=== PATIENT | male | born 1980 | race Caucasian/White ===

== ENCOUNTER 2017-01-05 21:13 | Emergency (ER) | payer BC ==
[2017-01-05] MEDS ORDERED: Albuterol/Ipratropium 3.0-0.5 MG/3 ML Neb Soln NEB ONE (21:20)
--- NOTE | 2017-01-05 21:27 | EDM.PDOC ---
ED HPI GENERAL MEDICAL PROBLEM - General Chief Complaint: Respiratory Problem Stated Complaint: PT HAS DIFFICULTY BREATHING Time Seen by Provider: 01/05/17 21:15 Source of Information: Reports: Patient History Limitations: Reports: No Limitations - History of Present Illness INITIAL COMMENTS - FREE TEXT/NARRATIVE: HISTORY AND PHYSICAL: History of present illness: Patient is a 36-year-old male who presents to the emergency room today with complaints of body aches, dyspnea, cough 1 week. He reports that he is concerned he has the flu. Does have a 20 year history, one pack per day, of smoking. Has not tried any [id number] products for his symptoms. Denies any chest pain, abdominal pain, nausea, vomiting, diarrhea. Has not received the [id number] influenza vaccine. Review of systems: As per history of present illness and below otherwise all systems reviewed and negative. Past medical history: As per history of present illness and as reviewed below otherwise noncontributory. Surgical history: As per history of present illness and as reviewed below otherwise noncontributory. Social history: No reported history of drug or alcohol abuse. Family history: As per history of present illness and as reviewed below otherwise noncontributory. Physical exam: Gen.: Well-developed and well-nourished 36-year-old male. Appears nontoxic and in no acute distress. Alert and oriented. HEENT: Atraumatic, normocephalic, pupils reactive, negative for conjunctival pallor or scleral icterus, mucous membranes moist, throat clear, neck supple, nontender, trachea midline. Lungs: Expiratory wheezing noted to the right posterior base otherwise clear, breath sounds equal bilaterally, chest nontender. Dry nonproductive cough noted. Heart: S1S2 regular rate and rhythm. Abdomen: Soft, nondistended, nontender. Negative for masses or hepatosplenomegaly. Negative for costovertebral tenderness. Pelvis: Stable nontender. Genitourinary: Deferred. Rectal: Deferred. Extremities: Atraumatic, negative for cords or calf pain. Neurovascular unremarkable. Neuro: Awake, alert, oriented. Cranial nerves II through XII unremarkable. Cerebellum unremarkable. Motor and sensory unremarkable throughout. Exam nonfocal. Diagnostics: Influenza swab, chest x-ray Therapeutics: DuoNeb Impression: Atypical pneumonia Plan: 1. Please take your medication as prescribed. Antibiotic has been prescribed for atypical pneumonia. A Medrol Dosepak has been prescribed to help with inflammation/swelling of the airway. And DuoNeb solutions have been prescribed as needed for difficulty breathing/cough. 2. Please stop smoking. 3. Follow-up with your primary care provider in the next 1-2 days. Return to the ED as needed and as discussed. Definitive disposition and diagnosis as appropriate pending reevaluation and review of above. Duration: Week(s): (1) - Related Data Allergies Allergy/AdvReac Type Severity Reaction Status Date / Time No Known Allergies Allergy Verified 01/05/17 21:17 Home Meds: Home Meds . [Unable to Verify Home Med List] 01/05/17 [History] Past Medical History HEENT History: Reports: None Cardiovascular History: Reports: Hypertension Respiratory History: Reports: None Gastrointestinal History: Reports: None Genitourinary History: Reports: None Musculoskeletal History: Reports: None Neurological History: Reports: None Psychiatric History: Reports: None Endocrine/Metabolic History: Reports: None Hematologic History: Reports: None Immunologic History: Reports: None Oncologic (Cancer) History: Reports: None Dermatologic History: Reports: None - Past Surgical History Head Surgeries/Procedures: Reports: None HEENT Surgical History: Reports: None Cardiovascular Surgical History: Reports: None Respiratory Surgical History: Reports: None GI Surgical History: Reports: None Male Surgical History: Reports: None Endocrine Surgical History: Reports: None Neurological Surgical History: Reports: None Musculoskeletal Surgical History: Reports: None Oncologic Surgical History: Reports: None Dermatological Surgical History: Reports: None Social & Family History - Family History Family Medical History: Noncontributory - Tobacco Use Smoking Status *Q: Current Every Day Smoker Years of Tobacco use: 20 Packs/Tins Daily: 1 - Caffeine Use Caffeine Use: Reports: Coffee - Recreational Drug Use Recreational Drug Use: No ED ROS GENERAL - Review of Systems Review Of Systems: ROS reveals no pertinent complaints other than HPI. ED EXAM, GENERAL - Physical Exam Exam: See Below (See dictation) Course - Vital Signs Last Recorded V/S: Last Vital Signs Temp 36.2 C 01/05/17 21:17 Pulse 81 01/05/17 21:17 Resp 18 01/05/17 21:17 BP 163/105 H 01/05/17 21:17 Pulse Ox 98 01/05/17 21:17 - Orders/Labs/Meds Orders: Active Orders 24 hr Category Date Time Status RT Aerosol Therapy [RC] ASDIRECTED Care 01/05/17 21:23 Active Chest 2V [CR] Stat Exams 01/05/17 21:20 Ordered Meds: Medications Discontinued Medications Generic Name Dose Route Start Last Admin Trade Name Jos PRN Reason Stop Dose Admin Albuterol/Ipratropium 3 ml 01/05/17 21:20 01/05/17 21:31 Duoneb 3.0-0.5 Mg/3 Ml NEB 01/05/17 21:21 3 ml ONETIME ONE Administration Departure - Departure Time of Disposition: 21:52 Disposition: Home, Self-Care 01 Clinical Impression: Atypical pneumonia - Discharge Information Referrals: PCP,None [Primary Care Provider] - Forms: ED Department Discharge Additional Instructions: My general discharge The following information is given to patients seen in the emergency department who are being discharged to home. This information is to outline your options for follow-up care. We provide all patients seen in our emergency department with a follow-up referral. The need for follow-up, as well as the timing and circumstances, are variable depending upon the specifics of your emergency department visit. If you don't have a primary care physician on staff, we will provide you with a referral. We always advise you to contact your personal physician following an emergency department visit to inform them of the circumstance of the visit and for follow-up with them and/or the need for any referrals to a consulting specialist. The emergency department will also refer you to a specialist when appropriate. This referral assures that you have the opportunity for follow-up care with a specialist. All of these measure are taken in an effort to provide you with optimal care, which includes your follow-up. Under all circumstances we always encourage you to contact your private physician who remains a resource for coordinating your care. When calling for follow-up care, please make the office aware that this follow-up is from your recent emergency room visit. If for any reason you are refused follow-up, please contact the [facility] at and asked to speak to the emergency department charge nurse. [facility] [address] [place] [id number] 1. Please take your medication as prescribed. Antibiotic has been prescribed for atypical pneumonia. A Medrol Dosepak has been prescribed to help with inflammation/swelling of the airway. And DuoNeb solutions have been prescribed as needed for difficulty breathing/cough. 2. Please stop smoking. 3. Follow-up with your primary care provider in the next 1-2 days. Return to the ED as needed and as discussed. - My Orders Last 24 Hours: My Active Orders 01/05/17 21:20 Chest 2V [CR] Stat 01/05/17 21:23 RT Aerosol Therapy [RC] ASDIRECTED - Assessment/Plan Last 24 Hours: My Active Orders 01/05/17 21:20 Chest 2V [CR] Stat 01/05/17 21:23 RT Aerosol Therapy [RC] ASDIRECTED
--- NOTE | 2017-01-06 16:13 | CR ---
EXAM DATE: 01/05/17 PATIENT'S AGE: 36 Patient: RACHEL THIBODEAUX Facility: [place], [place] Site . Site : [id number] Study: XRay Chest [id number] 9:57:47 PM Ordering Physician: Doctor Calderon Final Report: INDICATION: Shortness of breath. Cough. Technique: PA and lateral chest x-ray. Findings: Heart size normal. Lungs clear without infiltrate. Chest otherwise negative without acute disease. Dictated by Christopher Meza MD @ Jan 05 2017 9:59PM (Electronic Signature) Report Signed by Proxy. EAMON
== END 2017-01-05 22:16 | disposition home or self-care (01) ==
LOC: MW.ED 21:13
DX: J18.9 Pneumonia, unspecified organism (principal); I10 Essential (primary) hypertension; F17.210 Nicotine dependence, cigarettes, uncomplicated
CPT/HCPCS: 71020; 71020-26; 87804; 94640; 99284; 99285-25

== ENCOUNTER 2018-09-25 01:49 | Emergency (ER) | payer BC ==
[2018-09-25] MEDS ORDERED: Diphtheria,Pertussis(Acell),Tetanus Vaccine 0.5 ML Syringe IM ONE (02:14)
[2018-09-25] MEDS ORDERED: Bacitracin Oint 1 GM U/D Packet TOP ONE (02:14)
--- NOTE | 2018-09-25 02:29 | EDM.PDOC ---
<Fabián Meredith - Last Filed: 09/25/18 02:47> ED HPI GENERAL MEDICAL PROBLEM - General Chief Complaint: Upper Extremity Injury/Pain Stated Complaint: POSSIBLE BROKEN RIGHT ARM Time Seen by Provider: 09/25/18 02:04 - History of Present Illness INITIAL COMMENTS - FREE TEXT/NARRATIVE: History of Present Illness: Pineda is a 37 year old male who presents to the emergency department for a right arm injury. Apparently, the patient was climbing down from the roof of his shed to the bed of his pickup truck. While climbing down, he lost his balance once he was on top of the bed of the truck and fell approximately 2.5 feet and scrapped his right arm on a gutter. The patient denies hitting his head or losing consciousness with the fall. He further states that two days ago he hit his right elbow on a wall when he was having sexual intercourse. He has noticed the elbow has now become bruised and the bruising is moving up his arm. The patietn denies any other associated trauma. Review of systems: As per history of present illness and below otherwise all systems reviewed and negative. Past medical History: As per history of present illness and as reviewed below otherwise noncontributory. Surgical History: As per history of present illness and as reviewed below otherwise noncontributory. Family history: No reported history of drug or alcohol abuse. Physical Exam: General: Well- developed well- nourished male who is non toxic appearing. HEENT: Atraumatic, normocephalic, pupils reactive, mucous membranes moist, throat clear with no exudates, uvula is midline, neck supple, nontender, trachea midline. Lungs: Clear to auscultation, breath sounds equal bilaterally, chest nontender. Heart: S1S2, regular rate and rhythm, no overt murmurs. Abdomen: Soft, nondistended, nontender. Negative for masses or hepatosplenomegaly. Normal abdominal bowel sounds. Pelvis: Deferred Genitourinary: Deferred Rectal: Deferred Extremities: Abrasion present to the posterior forearm with no drainage. Diffuse swelling and with ecchymyosis to the elbow and posterior/medial aspect of the upper arm. Full range of motion present of the joint spaces of the right upper extremity. No raul raul deformities palpated. Sensation intact, Radial pulse +2 Cap refill < 3 seconds. Neuro: Awake, alert, Cranial nerves II through XII unremarkable. Cerebellum unremarkable. Motor and sensory unremarkable throughout. Exam nonfocal. Skin: Normal turgor no overt rash or lesions. Notes: Upon finding of radiographic imagining, the the patient elbow was reassessed. The patient denied tenderness to palpation of the olecranon, supracondylar, radial head. The patient has excellent pronation and supination without limited range of motion or tenderness. Diagnostics: X-ray of the Forearm and Humerus Therapeutics: Tetanus R Arm Sling Impression: Right Arm Pain Fall Plan: Radiographic imagining demonstrating no acute fracture. The patient was fitted and placed in a right arm sling by nursing staff. He is to take OTC NSAIDS per manufacture instruction for pain relief. He is to continue to ice the effected area. He is to follow up with his PCP. Return to the emergency department as needed and as discussed. right elbow Pain Score (Numeric/FACES): 3 - Related Data Allergies Allergy/AdvReac Type Severity Reaction Status Date / Time No Known Allergies Allergy Verified 09/25/18 01:57 Home Meds: Home Meds LORazepam 1 tab PO ASDIRECTED PRN 09/25/18 [History] Past Medical History HEENT History: Reports: None Cardiovascular History: Reports: Hypertension Respiratory History: Reports: None Gastrointestinal History: Reports: None Genitourinary History: Reports: None Musculoskeletal History: Reports: None Neurological History: Reports: None Psychiatric History: Reports: Anxiety Endocrine/Metabolic History: Reports: None Hematologic History: Reports: None Immunologic History: Reports: None Oncologic (Cancer) History: Reports: None Dermatologic History: Reports: None - Past Surgical History Head Surgeries/Procedures: Reports: None HEENT Surgical History: Reports: None Cardiovascular Surgical History: Reports: None Respiratory Surgical History: Reports: None GI Surgical History: Reports: None Male Surgical History: Reports: None Endocrine Surgical History: Reports: None Neurological Surgical History: Reports: None Musculoskeletal Surgical History: Reports: None Oncologic Surgical History: Reports: None Dermatological Surgical History: Reports: None Social & Family History - Family History Family Medical History: Noncontributory - Tobacco Use Smoking Status *Q: Current Every Day Smoker Years of Tobacco use: 3 Packs/Tins Daily: 1 - Caffeine Use Caffeine Use: Reports: Coffee - Recreational Drug Use Recreational Drug Use: No Course - Vital Signs Last Recorded V/S: Last Vital Signs Temp 36.2 C 09/25/18 01:52 Pulse 104 H 09/25/18 01:52 Resp 18 09/25/18 01:52 BP 149/106 H 09/25/18 01:52 Pulse Ox 94 L 09/25/18 01:52 - Orders/Labs/Meds Orders: Active Orders 24 hr Category Date Time Status Vaccines to be Administered [RC] PER UNIT ROUTINE Care 09/25/18 02:14 Active DME for Discharge [COMM] Stat Oth 09/25/18 02:45 Ordered Meds: Medications Discontinued Medications Generic Name Dose Route Start Last Admin Trade Name Freq PRN Reason Stop Dose Admin Bacitracin 1 dose 09/25/18 02:14 09/25/18 02:40 Bacitracin Oint 1 Gm TOP 09/25/18 02:15 1 dose ONETIME ONE Administration Diphtheria/Tetanus/Acell Pertussis 0.5 ml 09/25/18 02:14 09/25/18 02:39 Adacel IM 09/25/18 02:15 0.5 ml .ONCE ONE Administration Departure - Departure Disposition: Home, Self-Care 01 Clinical Impression: Injury of right upper extremity Qualifiers: Encounter type: initial encounter Qualified Code(s): S49.91XA - Unspecified injury of right shoulder and upper arm, initial encounter - Discharge Information Referrals: Alejandra Cerda DO [Primary Care Provider] - Forms: ED Department Discharge Additional Instructions: The following information is given to patients seen in the emergency department who are being discharged to home. This information is to outline your options for follow-up care. We provide all patients seen in our emergency department with a follow-up referral. The need for follow-up, as well as the timing and circumstances, are variable depending upon the specifics of your emergency department visit. If you don't have a primary care physician on staff, we will provide you with a referral. We always advise you to contact your personal physician following an emergency department visit to inform them of the circumstance of the visit and for follow-up with them and/or the need for any referrals to a consulting specialist. The emergency department will also refer you to a specialist when appropriate. This referral assures that you have the opportunity for followup care with a specialist. All of these measure are taken in an effort to provide you with optimal care, which includes your followup. Under all circumstances we always encourage you to contact your private physician who remains a resource for coordinating your care. When calling for followup care, please make the office aware that this follow-up is from your recent emergency room visit. If for any reason you are refused follow-up, please contact the [facility] emergency department at and ask to speak to the emergency department charge nurse. [facility] Primary care- Internal Medicine and Family [address] [id number] - My Orders Last 24 Hours: My Active Orders 09/25/18 02:14 Vaccines to be Administered [RC] PER UNIT ROUTINE 09/25/18 02:45 DME for Discharge [COMM] Stat - Assessment/Plan Last 24 Hours: My Active Orders 09/25/18 02:14 Vaccines to be Administered [RC] PER UNIT ROUTINE 09/25/18 02:45 DME for Discharge [COMM] Stat <Sahra York - Last Filed: 09/25/18 02:58> ED HPI GENERAL MEDICAL PROBLEM - History of Present Illness INITIAL COMMENTS - FREE TEXT/NARRATIVE: This is Dr. York dictating an addendum note as I am the supervising physician on this case. I personally seen and evaluated the patient and agree with history physical as above and the patient seems very unaffected by pain and completely range of motions the elbow wrist and proximal shoulder without defects or discomfort. There is diffuse diffuse soft tissue swelling and ecchymosis both proximally and distally to the elbow without any palpable bony deformities and there is some superficial abrasions seen on the volar aspect of the forearm. The distal wrist and hand are intact without defects deficits or soft tissue swelling as is the proximal shoulder and clavicle. There are no other injuries appreciated on this patient nor does he complain of any other injuries. We will proceed with above workup and do x-rays as well as give tetanus booster and local wound care. Review of Systems - Review of Systems Review Of Systems: ROS reveals no pertinent complaints other than HPI. ED EXAM, GENERAL - Physical Exam Exam: See Below (see Dictation) Departure - Departure Time of Disposition: 02:58 Condition: Good
--- NOTE | 2018-09-25 02:44 | CR ---
INDICATION: Forearm pain following fall TECHNIQUE: Forearm radiograph 2 views right COMPARISON: None FINDINGS: Bone: No acute fractures or aggressive bone lesions are identified. Joint: The visualized radiocarpal and elbow joints are unremarkable, but the elbow joint is not profiled. If there is pain or tenderness in this region, dedicated views of the elbow are recommended. Soft tissue: Subcutaneous edema is noted. No radiopaque foreign bodies are seen. IMPRESSION: 1. No acute osseous injuries or abnormalities are noted. Dictated by: Luigi Mason MD @ 09/25/2018 02:42:23 (Electronically Signed)
--- NOTE | 2018-09-25 02:44 | CR ---
INDICATION: Humerus pain following fall TECHNIQUE: Humerus radiograph 2 views right COMPARISON: None FINDINGS: Bone: No acute fractures or aggressive bone lesions are identified. Joint: The visualized glenohumeral and elbow joints are unremarkable, but the elbow joint is not profiled. If there is pain or tenderness in this region, dedicated views of the elbow are recommended. Soft tissue: The visualized hemithorax and soft tissues are unremarkable in appearance. No radiopaque foreign bodies are seen. IMPRESSION: 1. No acute osseous injuries or abnormalities are noted. Dictated by: Luigi Mason MD @ 09/25/2018 02:42:39 (Electronically Signed)
== END 2018-09-25 03:00 | disposition home or self-care (01) ==
LOC: MW.ED 01:49
DX: S50.01XA Contusion of right elbow, initial encounter (principal); I10 Essential (primary) hypertension; F41.9 Anxiety disorder, unspecified; F17.210 Nicotine dependence, cigarettes, uncomplicated; Z79.899 Other long term (current) drug therapy; Z23 Encounter for immunization; W17.89XA Other fall from one level to another, initial encounter; Y93.39 Activity, other involving climbing, rappelling and jumping off
CPT/HCPCS: 73060-26-RT; 73060-RT; 73090-26-RT; 73090-RT; 90471; 90715; 99283; 99283-25

== ENCOUNTER 2019-07-17 04:23 | Emergency (ER) | payer BC, OTHER ==
--- NOTE | 2019-07-17 05:38 | CR ---
INDICATION: Pain, trauma TECHNIQUE: Three views left hand COMPARISON: None FINDINGS: Bones: Alignment is normal. No fractures or bone lesions. Joint spaces: Unremarkable. Soft tissues: Soft tissue edema dorsal to the metacarpal heads. IMPRESSION: Soft tissue edema dorsal to the metacarpal heads. Dictated by Moisés Kelley MD @ 07/17/2019 5:36:55 AM Dictated by: Moisés Kelley MD @ 07/17/2019 05:37:01 (Electronically Signed)
--- NOTE | 2019-07-17 05:39 | CR ---
INDICATION: Pain, trauma TECHNIQUE: Three views right hand COMPARISON: None FINDINGS: Bones: Alignment is normal. No fractures or bone lesions. Joint spaces: Unremarkable. Soft tissues: Soft tissue edema dorsal to the metacarpal heads. IMPRESSION: Soft tissue edema dorsal to the metacarpal heads. Dictated by Moisés Kelley MD @ 07/17/2019 5:38:34 AM Dictated by: Moisés Kelley MD @ 07/17/2019 05:38:38 (Electronically Signed)
--- NOTE | 2019-07-17 05:56 | EDM.PDOC ---
ED HPI GENERAL MEDICAL PROBLEM - General Chief Complaint: General Stated Complaint: MEDICAL CLEARANCE Time Seen by Provider: 07/17/19 04:37 Source of Information: Reports: Patient History Limitations: Reports: No Limitations - History of Present Illness INITIAL COMMENTS - FREE TEXT/NARRATIVE: 38-year-old male no past medical history presenting for prison clearance with law enforcement. Patient reportedly punched a wall with both of his closed fists and was brought to the emergency room for evaluation of abrasions over the MCP joints of both hands along with mild pain. No other complaints are noted. Patient states his tetanus immunization status is up-to-date. - Related Data Allergies Allergy/AdvReac Type Severity Reaction Status Date / Time No Known Allergies Allergy Verified 07/17/19 04:27 Home Meds: Home Meds LORazepam 1 tab PO ASDIRECTED PRN 09/25/18 [History] Past Medical History - Past Health History Medical/Surgical History: Denies Medical/Surgical History HEENT History: Reports: None Cardiovascular History: Reports: Hypertension Respiratory History: Reports: None Gastrointestinal History: Reports: None Genitourinary History: Reports: None Musculoskeletal History: Reports: None Neurological History: Reports: None Psychiatric History: Reports: Anxiety Endocrine/Metabolic History: Reports: None Hematologic History: Reports: None Immunologic History: Reports: None Oncologic (Cancer) History: Reports: None Dermatologic History: Reports: None - Past Surgical History Head Surgeries/Procedures: Reports: None HEENT Surgical History: Reports: None Cardiovascular Surgical History: Reports: None Respiratory Surgical History: Reports: None GI Surgical History: Reports: None Male Surgical History: Reports: None Endocrine Surgical History: Reports: None Neurological Surgical History: Reports: None Musculoskeletal Surgical History: Reports: None Oncologic Surgical History: Reports: None Dermatological Surgical History: Reports: None Social & Family History - Family History Family Medical History: Noncontributory - Tobacco Use Smoking Status *Q: Current Every Day Smoker Years of Tobacco use: 20 Packs/Tins Daily: 1 - Caffeine Use Caffeine Use: Reports: None - Alcohol Use Days Per Week of Alcohol Use: 3 Number of Drinks Per Day: 6 Total Drinks Per Week: 18 - Recreational Drug Use Recreational Drug Use: No ED ROS GENERAL - Review of Systems Review Of Systems: See Below Respiratory: Denies: Shortness of Breath Cardiovascular: Denies: Chest Pain Musculoskeletal: Denies: Hand Pain, Joint Pain, Joint Swelling Skin: Reports: Wound ED EXAM, GENERAL - Physical Exam Exam: See Below Free Text/Narrative:: Vital signs reviewed. Nursing notes reviewed. Constitutional: Awake, alert, non-distressed. Head: Normocephalic, atraumatic. Eyes: EOMI, conjunctiva normal, no discharge, no scleral icterus. Ears, Nose, Throat: External ears and ears normal, moist oral mucosa. Cardiovascular: 2+ radial pulses b/l, capillary refill less than 2 seconds in all fingers of b/l hands. Pulmonary: normal work of breathing, no accessory muscle use. Abdomen/GI: Soft, nontender, nondistended, no guarding or rigidity, no masses. Musculoskeletal: No deformities. Integumentary: Appropriate color for ethnicity, warm, dry, no pallor or jaundice , no rash. Superficial abrasions noted to the MCP joint over the right fifth finger, and the right second PIP joint along with the left second PIP joint. Normal ROM to all fingers, normal ROM to b/l wrists and elbows. Neurologic: Alert, answering questions appropriately, normal speech, no facial droop, moving all extremities well. SILT to all fingers. Psychiatric: Appropriate mood and affect, normal thought process. Course - Vital Signs Text/Narrative:: Patient hemodynamically stable, afebrile, well-appearing, looks nontoxic. Differential diagnosis includes but is not limited to: abrasions, fractures, boxer's fracture, dislocation, soft tissue injury, etc. Neurovascular;y intact in both of the hands. X-rays were obtained to evaluate for occult fracture such as a boxer's fracture, these were negative for any bony injury. Patient is stable to discharge to prison. Recommended over-the- counter antibiotic ointment once or twice a day and follow-up in a primary medical or prison clinic as needed. Acetaminophen or ibuprofen as needed for pain. Strict emergency department return precautions were provided, patient indicated understanding. All questions were answered prior to departure. Discharged in good condition. Last Recorded V/S: Last Vital Signs Temp 36.4 C 07/17/19 04:31 Pulse 88 07/17/19 04:31 Resp 18 07/17/19 06:10 BP 134/82 07/17/19 06:10 Pulse Ox 98 07/17/19 06:10 Departure - Departure Time of Disposition: 05:53 Disposition: Home, W Home Health Agency 06 Condition: Good Clinical Impression: Bilateral hand pain Abrasion of hand, left Qualifiers: Encounter type: initial encounter Qualified Code(s): S60.512A - Abrasion of left hand, initial encounter Abrasion of hand, right Qualifiers: Encounter type: initial encounter Qualified Code(s): S60.511A - Abrasion of right hand, initial encounter - Discharge Information *PRESCRIPTION DRUG MONITORING PROGRAM REVIEWED*: Not Applicable *COPY OF PRESCRIPTION DRUG MONITORING REPORT IN PATIENT BERNARDINO: Not Applicable Instructions: Abrasion, Hand Pain Referrals: [facility] [Provider Group] - 1 Week (Follow-up as needed for complaints.) Forms: ED Department Discharge Additional Instructions: You can apply [id number] antibiotic ointment to the abrasions on your hands twice daily. You can take [id number] acetaminophen or ibuprofen as needed for pain. Follow-up with the prison medical staff or a primary medical clinic in the next week or so if your symptoms do not improve. Return to the emergency department if your symptoms worsen. The following information is given to patients seen in the emergency department who are being discharged to home. This information is to outline your options for follow-up care. We provide all patients seen in our emergency department with a follow-up referral. The need for follow-up, as well as the timing and circumstances, are variable depending upon the specifics of your emergency department visit. If you don't have a primary care physician on staff, we will provide you with a referral. We always advise you to contact your personal physician following an emergency department visit to inform them of the circumstance of the visit and for follow-up with them and/or the need for any referrals to a consulting specialist. The emergency department will also refer you to a specialist when appropriate. This referral assures that you have the opportunity for follow-up care with a specialist. All of these measure are taken in an effort to provide you with optimal care, which includes your follow-up. Under all circumstances we always encourage you to contact your private physician who remains a resource for coordinating your care. When calling for follow-up care, please make the office aware that this follow-up is from your recent emergency room visit. If for any reason you are refused follow-up, please contact the [facility] Emergency Department at and asked to speak to the emergency department charge nurse. If you do not have a primary care physician that is caring for you, you can contact these clinics below to set up an appointment to establish care: [facility] [address] [place] [id number] [facility] [address] [place] [id number] Sepsis Event Note - Evaluation Sepsis Screening Result: No Definite Risk - Focused Exam Date Exam was Performed: 07/17/19 Time Exam was Performed: 19:23
== END 2019-07-17 06:17 | disposition home health service (06) ==
LOC: MW.ED 04:23
DX: S60.512A Abrasion of left hand, initial encounter (principal); S60.511A Abrasion of right hand, initial encounter; I10 Essential (primary) hypertension; F17.210 Nicotine dependence, cigarettes, uncomplicated; W22.01XA Walked into wall, initial encounter
CPT/HCPCS: 73130-26-LT; 73130-26-RT; 73130-LT; 73130-RT; 99282; 99283-25

== ENCOUNTER 2021-10-26 19:00 | Emergency (ER) | payer SELFPAY | END 2021-10-26 19:38 | disposition home or self-care (01) | LOC: MW.ED 19:00 | DX: Z02.89 Encounter for other administrative examinations (principal); I10 Essential (primary) hypertension | CPT/HCPCS: 99283 ==